=== PATIENT | male | born 1990 | race Caucasian/White ===

== ENCOUNTER 2017-09-26 02:42 | Emergency (ER) | payer OTHER ==
[~2017-09-26] VITALS: Ht 177.8 cm; Wt 117.9 kg
[2017-09-26] MEDS ORDERED: INSU100I35 SQ (02:46)
[2017-09-26] MEDS ORDERED: LEVO-3 PO (02:47)
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
[2017-09-26] MEDS ORDERED: LOR5/325 PO (04:09)
[2017-09-26] MEDS ORDERED: ACET/HYDROC 5/325MG TH ER ONLY 2 TAB/BOTTLE PO ONE (04:10)
[2017-09-26] MEDS ORDERED: IBUPROFEN 800 MG TAB PO ONE (04:10)
[2017-09-26] MEDS ORDERED: APAP/HYDROCODONE 325/5 TAB PO ONE (04:10)
[2017-09-26 04:11] VITALS: BP 112/72
== END 2017-09-26 04:19 | disposition home or self-care (01) ==
LOC: ER 02:47
DX: S33.5XXA Sprain of ligaments of lumbar spine, initial encounter (principal); S20.212A Contusion of left front wall of thorax, initial encounter; V48.5XXA Car driver injured in noncollision transport accident in traffic accident, initial encounter; Y99.0 Civilian activity done for income or pay
CPT/HCPCS: 71020; 71100; 72100; 99283

== ENCOUNTER → 2017-09-26 | Outpatient (CLI) | payer OTHER ==
[~2017-09-26] MED LIST: INSU100I35 SQ; LEVO-3 PO; LOR5/325 PO
== END ==
LOC: AMB 02:06
PROVIDERS: ATTEND Nurse Practitioner
DX: R07.81 Pleurodynia (principal); S00.01XA Abrasion of scalp, initial encounter; V48.9XXA Unspecified car occupant injured in noncollision transport accident in traffic accident, initial encounter; Y92.411 Interstate highway as the place of occurrence of the external cause
CPT/HCPCS: A0425; A0429